=== PATIENT | male | born 1965 | race Caucasian/White ===

== ENCOUNTER 2022-06-09 17:49 | Inpatient (IN) ==
--- NOTE | 2022-06-09 17:52 | Emergency Department Note ---
History of Present Illness General Chief Complaint: Abdominal Pain Stated Complaint: ABDOMINAL ABSCESS, ABD PAIN Home Medications Medication Instructions Recorded Confirmed Type ASPIRIN (ASPIRIN CHEWABLE) 81 mg PO WK #0 tabs 03/26/13 History ZOLPIDEM TARTRATE 10 mg PO HS PRN Sleep ##0 03/26/13 History Allergies Allergy/AdvReac Type Severity Reaction Status Date / Time No Known Allergies Allergy Unverified 03/26/13 20:23 Discharge Plan Visit Data Chief Complaint: Abdominal Pain Stated Complaint: ABDOMINAL ABSCESS, ABD PAIN ED Provider: POLA GRAMAJO Forms Stand Alone Forms: [facility] Prescriptions Prescriptions: No Action ASPIRIN (ASPIRIN CHEWABLE) 81 MG CHEWABLE TAB 81 mg PO WK Qty: 0 Patient Comments: TAKE THIS MEDICATION EVERY TUESDAY. ZOLPIDEM TARTRATE 10 MG tablet 10 mg PO HS PRN (Reason: Sleep) Qty: 0 Referrals Referrals: PCP,NO [Primary Care Provider] -
[2022-06-09] MEDS ORDERED: PIPERACILLIN/TAZOBACTAM 4.5 GM/120 ML BAG IV ONE (17:54)
--- NOTE | 2022-06-09 17:57 | ED Triage Note ---
Date of Service June 09, 2022 History of Present Illness This patient was briefly evaluated while in triage. An abbreviated physical exam was performed. This patient is a 56-year-old Male with past medical history of dyslipidemia who presents to the ED for evaluation of a diverticular abscess found on CT today. abd pain x few weeks increased in 3 days started Augmentin had outpatient CT showed diverticular abscess sent for admission Physical Exam GENERAL: NAD CARDIOVASCULAR: RRR RESPIRATORY: CTA ABDOMEN: BS x 4. mild mid left abd pain to palpation Initial orders for labs and / or imaging were placed and patient was placed in the waiting area until a bed is available. Please see further documentation for the full ED course.
--- NOTE | 2022-06-09 18:30 | Emergency Department Note ---
Impression & Plan Abdominal pain, Diverticulitis ED Provider Note ED Provider Note NAME: SUSY HUITRON AGE:56 SEX: Male : 1965 ARRIVES VIA: Private vehicle INFORMANT: Patient ED PROVIDER(s): Rosa Isela Sanchez DO CHIEF COMPLAINT: Abdominal pain, outpatient CT showing diverticulitis HPI: This is a 56-year-old male presents emergency department due to concern for several weeks of intermittent abdominal pain. Pain worse in recent days and he was seen by one of his colleagues through [facility] and had outpatient lab work and a CT done. He states no significant leukocytosis, however CT did reveal diverticulitis with 2.5 cm adjacent abscess. He states he did contact Dr. Lemus of GI and was told to go to the emergency department for admission and IV antibiotics. Patient did have a prior screening colonoscopy at age 52 which she states he was told he had mild diverticular disease. No other history of IBS or IBD. No recent melena or hematochezia. He denies fevers, chills, nausea or vomiting. He states he did start taking Augmentin yesterday as a precaution due to his higher suspicion for likely diverticulitis. He has had a total of 3 doses of Augmentin. PAST MEDICAL HISTORY:See Below PAST SURGICAL HISTORY:See Below FAMILY HISTORY:See Below SOCIAL HISTORY:See Below HOME MEDICATIONS:See Below ALLERGIES:See Below VITALS:See Below PHYSICAL EXAMINATION: GENERAL: alert, well appearing, well nourished, no distress, non-toxic EYE EXAM: normal conjunctiva, PERRL and EOM's grossly intact OROPHARYNX: no exudate, no erythema, lips, buccal mucosa, and tongue normal and mucous membranes are moist NECK: supple, no nuchal rigidity, no adenopathy, non-tender LUNGS: Clear to auscultation. Normal chest wall mechanics, no w/r/r HEART: no murmurs, S1 normal and S2 normal ABDOMEN: abdomen soft, minimal discomfort with palpation of LLQ/Left suprapubic region, normo-active bowel sounds, no masses, no rebound or guarding. BACK: Back is symmetrical on inspection and there is no deformity, no midline tenderness, no CVA tenderness. SKIN: no rashes, petechiae, orbruising UPPER EXTREMITIES: upper extremities are grossly normal. FROM, nml pulses b/l. LOWER EXTREMITIES: No pitting edema. FROM, nml pulses b/l. NEURO EXAM: Normal sensorium, cranial nerves II-XII grossly intact, normal speech, no facial droop,nogross weakness of arms, no gross weakness of legs. Gross sensation intact. No ataxia. Vital Signs: reviewed and remarkable Differential Diagnosis: Diverticulitis, abscess, fistula, UTI, colitis, perforation, GI bleed, mesenteric ischemia, [place] syndrome, renal colic, as well as others were considered MEDICAL DECISION MAKING: THis is a 56 yo male who was referred to the ER by his PCP for further treatment of diverticulitis with abscess found on outpatient CT. VS stable and patient afebrile. Outpatient labs and CT reviewed. Labs including markers for sepsis drawn and IVF and IV zosyn started in the ER. Case discussed with [facility] for additional evaluation. Patient declined pain medication. Consultation(s): 1919: Discussed with Dr. Jiménez. ER Treatment Provided: See below Diagnostics Interpreted By Me: -ECG: -Cardiac Monitoring: An order was placed for continuous cardiac monitoring. The monitor shows a rate of 80 with normal sinus rhythm. -Laboratory studies: As stated above and show below. -Imaging studies: [] Triage Nursing Note Reviewed Prior/Outside Records Reviewed -outpatient labs and CT abdomen pelvis Procedures: [] Critical Care: [] Past Med/Surg History Social History Smoking Status: Never smoker Second Hand Exposure: No; Do You Dip or Chew Tobacco: No; Hx Alcohol Use: Yes Alcohol type: wine Hx Substance Use: No Preferred Language: Mongolian Communication Ability: Effective Music Educator Required: No Beliefs That Will Affect Care: None Current Living Situation: Alone Feels Safe at Home: Yes Safety Concerns: Feels Safe At This Time Assistive Devices: None Allergies Allergies Allergy/AdvReac Type Severity Reaction Status Date / Time No Known Allergies Allergy Unverified 06/09/22 19:33 Home Meds Home Medications Medication Instructions Recorded Confirmed atorvastatin 20 mg tablet 20 mg PO DAILY 06/09/22 06/09/22 Results & Data (ED) Vital Signs Vital Signs - 24 hr 06/09/22 17:53 06/09/22 18:52 Temperature 37.1 C Temperature Source Temporal Artery Scan Pulse Rate 79 68 Respiratory Rate 18 Respiratory Effort / Characteristics Non-Labored Respiratory Depth Normal Blood Pressure 118/78 Blood Pressure Mean 91 Pulse Oximetry 97 Oxygen Delivery Method Room Air Sepsis Recent Fever Within 48 Hours No Sepsis New/Unexplained Change in Mental Status No Sepsis Action Taken by Nursing No Action Required Laboratory Data 06/09/22 18:44 06/09/22 18:44 Lab Results 06/09/22 06/09/22 06/09/22 Range/Units 18:44 18:44 18:44 WBC 9.67 (4.8-10.8) K/ul RBC 4.87 (4.70-6.10) M/uL Hgb 15.2 (14.0-18.0) g/dl Hct 43.6 (42.0-52.0) % MCV 89.5 (80.0-100.0) fL MCH 31.2 (25.0-34.0) pg MCHC 34.9 (32.0-36.0) g/dL RDW Std Deviation 37.9 (36.4-46.3) fL RDW Coeff of Tay 11.6 (11.5-14.5) % Plt Count 172 (130-400) K/uL MPV 10.8 (9.4-12.4) fL Immature Gran % (Auto) 0.3 % Neut % (Auto) 73.5 % Lymph % (Auto) 17.9 % Baker % (Auto) 7.9 % Eos % (Auto) 0.2 % Baso % (Auto) 0.2 % Neut # (Auto) 7.11 H (1.40-6.50) K/uL Lymph # (Auto) 1.73 (1.2-3.4) K/uL Baker # (Auto) 0.76 H (0.11-0.59) K/uL Eos # (Auto) 0.02 (0-0.50) K/uL Baso # (Auto) 0.02 (0-0.2) K/uL Immature Gran # (Auto) 0.03 (0.01-0.20) K/uL Sodium 135 L (136-145) mmol/L Potassium 3.9 (3.5-5.1) mmol/L Chloride 101 (98-107) mmol/L Carbon Dioxide 28 (21-32) mmol/L Anion Gap 6 (3-11) BUN 16 (6-23) mg/dl Creatinine 0.97 (0.6-1.4) mg/dl Est Cr Clr Drug Dosing 85.1 ml/min Est GFR ( Amer) 102.2 ml/min Est GFR (Non-Af Amer) 88.1 ml/min BUN/Creatinine Ratio 16.5 (10-20) Glucose 92 (70-99(Fasting)) mg/dl Lactate 1.0 (0.4-2.0) mmol/L Calcium 9.4 (8.5-10.1) mg/dl Total Bilirubin 1.4 H (0.2-1.0) mg/dl AST 16 (13-39) U/L ALT 20 (7-52) U/L Alkaline Phosphatase 51 (34-104) U/L Total Protein 7.1 (6.0-8.3) gm/dl Albumin 4.4 (3.4-5.0) gm/dl Globulin 2.7 (2.5-4.0) gm/dl Albumin/Globulin Ratio 1.6 (0.9-2) Lipase 26 (11-82) U/L SARS-CoV-2, RNA, NAAT (NEGATIVE) 06/09/22 Range/Units 18:53 WBC (4.8-10.8) K/ul RBC (4.70-6.10) M/uL Hgb (14.0-18.0) g/dl Hct (42.0-52.0) % MCV (80.0-100.0) fL MCH (25.0-34.0) pg MCHC (32.0-36.0) g/dL RDW Std Deviation (36.4-46.3) fL RDW Coeff of Tay (11.5-14.5) % Plt Count (130-400) K/uL MPV (9.4-12.4) fL Immature Gran % (Auto) % Neut % (Auto) % Lymph % (Auto) % Baker % (Auto) % Eos % (Auto) % Baso % (Auto) % Neut # (Auto) (1.40-6.50) K/uL Lymph # (Auto) (1.2-3.4) K/uL Baker # (Auto) (0.11-0.59) K/uL Eos # (Auto) (0-0.50) K/uL Baso # (Auto) (0-0.2) K/uL Immature Gran # (Auto) (0.01-0.20) K/uL Sodium (136-145) mmol/L Potassium (3.5-5.1) mmol/L Chloride (98-107) mmol/L Carbon Dioxide (21-32) mmol/L Anion Gap (3-11) BUN (6-23) mg/dl Creatinine (0.6-1.4) mg/dl Est Cr Clr Drug Dosing ml/min Est GFR ( Amer) ml/min Est GFR (Non-Af Amer) ml/min BUN/Creatinine Ratio (10-20) Glucose (70-99(Fasting)) mg/dl Lactate (0.4-2.0) mmol/L Calcium (8.5-10.1) mg/dl Total Bilirubin (0.2-1.0) mg/dl AST (13-39) U/L ALT (7-52) U/L Alkaline Phosphatase (34-104) U/L Total Protein (6.0-8.3) gm/dl Albumin (3.4-5.0) gm/dl Globulin (2.5-4.0) gm/dl Albumin/Globulin Ratio (0.9-2) Lipase (11-82) U/L SARS-CoV-2, RNA, NAAT NEGATIVE (NEGATIVE) Administered Medications Sodium Chloride (Nss 1000ml) 1,000 mls @ 100 mls/hr IV .Q10H ELIO Stop: 07/09/22 18:29 Last Admin: 06/10/22 01:50 Dose: 125 mls/hr Documented By: Infusion: 06/10/22 01:50 Dose: 125 mls/hr Documented By: Admin: 06/09/22 19:15 Dose: 125 mls/hr Documented By: MIAN Piperacillin Sod/Tazobactam (Sod 3.375 gm/ Dextrose) 115 mls @ 28.75 mls/hr IV Q8H ELIO; Protocol Stop: 06/20/22 00:00 Last Infusion: 06/10/22 04:34 Dose: 0 mls/hr Documented By: Admin: 06/10/22 00:09 Dose: 28.8 mls/hr Documented By: ESTEVAN Discontinued Medications Piperacillin Sod/Tazobactam Sod (Zosyn) 4.5 gm in 120 mls @ 240 mls/hr IV NOW ONE Stop: 06/09/22 18:23 Last Infusion: 06/09/22 19:14 Dose: 0 mls/hr Documented By: Admin: 06/09/22 18:38 Dose: 240 mls/hr Documented By: MIAN Discharge Plan Visit Data Chief Complaint: Abdominal Pain Stated Complaint: ABDOMINAL ABSCESS, ABD PAIN ED Provider: Rosa Isela Sanchez Discharge Problem: Abdominal pain, Diverticulitis Patient Disposition: Admitted As Inpatient Discharge Instructions Interventions: ED Discharge Assessment Last Done: 06/09/22 21:32
[2022-06-09 19:00] LABS: Basophils # (auto) 0.02 K/uL (0-0.2); Basophils % (auto) 0.2 %; Eosinophils # (auto) 0.02 K/uL (0-0.50); Eosinophils % (auto) 0.2 %; Hematocrit (blood only) 43.6 % (42.0-52.0); Hemoglobin 15.2 g/dl (14.0-18.0); Immature Granulocytes # (auto) 0.03 K/uL (0.01-0.20); Immature Granulocytes % (auto) 0.3 %; Lymphocytes # (auto) 1.73 K/uL (1.2-3.4); Lymphocytes % (auto) 17.9 %; Mean Corpuscular Hemoglobin 31.2 pg (25.0-34.0); Mean Corpuscular Hgb Conc 34.9 g/dL (32.0-36.0); Mean Corpuscular Volume 89.5 fL (80.0-100.0); Mean Platelet Volume 10.8 fL (9.4-12.4); Monocytes # (auto) 0.76 K/uL (0.11-0.59); Monocytes % (auto) 7.9 %; Neutrophils # (auto) 7.11 K/uL (1.40-6.50); Neutrophils % (auto) 73.5 %; Platelet Count 172 K/uL (130-400); RDW Coefficient of Variation 11.6 % (11.5-14.5); RDW Standard Deviation 37.9 fL (36.4-46.3); Red Blood Count 4.87 M/uL (4.70-6.10); White Blood Count 9.67 K/ul (4.8-10.8)
[2022-06-09] MEDS: SODIUM CHLORIDE 0.9% 1000ML 1,000 ML IV SCH (19:15)
[2022-06-09 19:27] LABS: Albumin Globulin Ratio 1.6 (0.9-2); Albumin Level 4.4 gm/dl (3.4-5.0); BUN Creatinine Ratio 16.5 (10-20); Bilirubin,Total 1.4 mg/dl (0.2-1.0); Calcium 9.4 mg/dl (8.5-10.1); Creatinine Clr Calc Pharmacy 85.1 ml/min; Est GFR (African American) 102.2 ml/min; Est GFR (Non-African American) 88.1 ml/min; Globulin 2.7 gm/dl (2.5-4.0); Potassium 3.9 mmol/L (3.5-5.1); Total Protein 7.1 gm/dl (6.0-8.3)
--- NOTE | 2022-06-09 20:21 | History & Physical Report ---
Date of Service June 09, 2022 Assessment & Plan (1) Diverticulitis of large intestine with complication: Plan: No sepsis for now Hyperlipidemia on statin Rx GMF Bowel rest Zosyn General surgery consult Re: Complicated diverticulitis DVT prophylaxis. Lovenox subcu Full code Text document was generated using Bloxr voice recognition software. It may contain grammatical or spelling errors. Kindly contact undersigned for clarification of any documentation item in question. History of Present Illness Chief Complaint: Abnormal CAT scan Primary Care Provider: Rachael Soares PA-C History obtained from patient and records. Medical history significant for hyperlipidemia, diverticulosis. Patient noted intermittent lower abdominal pain last few weeks. No fever, no chills, no hematochezia. Bowel movements sometimes painful as per patient. May have had short-lived episode spontaneously resolving a few months ago. Work colleague prescribed Augmentin for patient for possible gut infection yesterday. Patient seen at PCPs office today for worsening symptoms. Outpatient CAT scan showed : Short segment mural wall thickening with mild surrounding fat stranding involving the proximal sigmoid colon consistent with acute diverticulitis. A 2.3 x 1.4 cm focal hypoattenuating area of the involved colonic wall, suggesting a developing intramural abscess. No extramural gas. Patient directed to ER for evaluation. IV Zosyn administered at the ER. Medical History as above Surgical History : None Family History : Brain cancer, breast cancer, leukemia, lung cancer, hypertension, hyperlipidemia, Sjogren's syndrome Personal/Social history : Non-smoker, occasional EtOH intake, primary care physician Allergies Allergy/AdvReac Type Severity Reaction Status Date / Time No Known Allergies Allergy Unverified 06/09/22 19:33 Home Medications Medication Instructions Recorded Confirmed Type atorvastatin 20 mg tablet 20 mg PO DAILY 06/09/22 06/09/22 History Past Med/Surg History Social History Smoking Status: Never smoker Second Hand Exposure: No; Do You Dip or Chew Tobacco: No; Hx Alcohol Use: Yes Alcohol type: wine Hx Substance Use: No Preferred Language: Yi Communication Ability: Effective Softball Player Required: No Beliefs That Will Affect Care: None Current Living Situation: Alone Feels Safe at Home: Yes Safety Concerns: Feels Safe At This Time Assistive Devices: None Review of Systems Review of Systems: As per HPI, all other systems reviewed and negative Physical Exam Physical Exam: GENERAL: Comfortable, pleasant, no respiratory distress SKIN: Normal color, warm HEENT: [place] palpebral conjunctivae, no ptosis, moist buccal mucosa NECK : Supple, no tenderness CHEST : CTA, no tenderness HEART : RRR, no obvious murmurs ABDOMEN: Some distention, nontender EXTREMITIES : No LE swelling/tenderness, no other conspicuous deformities noted NEUROLOGIC : Coherent, no facial asymmetry, no other gross focality Results & Data Results & Data ([facility]) Vital Signs (Past 12 Hours) Vital Signs Temp Pulse Resp BP Pulse Ox O2 Del Method 06/09/22 18:52 68 06/09/22 17:53 37.1 C 79 18 118/78 97 Room Air Laboratory Results Laboratory Results WBC 9.67 K/ul (4.8-10.8) 06/09/22 18:44 RBC 4.87 M/uL (4.70-6.10) 06/09/22 18:44 Hgb 15.2 g/dl (14.0-18.0) 06/09/22 18:44 Hct 43.6 % (42.0-52.0) 06/09/22 18:44 MCV 89.5 fL (80.0-100.0) 06/09/22 18:44 MCH 31.2 pg (25.0-34.0) 06/09/22 18:44 MCHC 34.9 g/dL (32.0-36.0) 06/09/22 18:44 RDW Std Deviation 37.9 fL (36.4-46.3) 06/09/22 18:44 RDW Coeff of Tay 11.6 % (11.5-14.5) 06/09/22 18:44 Plt Count 172 K/uL (130-400) 06/09/22 18:44 MPV 10.8 fL (9.4-12.4) 06/09/22 18:44 Immature Gran % (Auto) 0.3 % 06/09/22 18:44 Neut % (Auto) 73.5 % 06/09/22 18:44 Lymph % (Auto) 17.9 % 06/09/22 18:44 [place] % (Auto) 7.9 % 06/09/22 18:44 Eos % (Auto) 0.2 % 06/09/22 18:44 Baso % (Auto) 0.2 % 06/09/22 18:44 Neut # (Auto) 7.11 K/uL (1.40-6.50) H 06/09/22 18:44 Lymph # (Auto) 1.73 K/uL (1.2-3.4) 06/09/22 18:44 [place] # (Auto) 0.76 K/uL (0.11-0.59) H 06/09/22 18:44 Eos # (Auto) 0.02 K/uL (0-0.50) 06/09/22 18:44 Baso # (Auto) 0.02 K/uL (0-0.2) 06/09/22 18:44 Immature Gran # (Auto) 0.03 K/uL (0.01-0.20) 06/09/22 18:44 Sodium 135 mmol/L (136-145) L 06/09/22 18:44 Potassium 3.9 mmol/L (3.5-5.1) 06/09/22 18:44 Chloride 101 mmol/L (98-107) 06/09/22 18:44 Carbon Dioxide 28 mmol/L (21-32) 06/09/22 18:44 Anion Gap 6 (3-11) 06/09/22 18:44 BUN 16 mg/dl (6-23) 06/09/22 18:44 Creatinine 0.97 mg/dl (0.6-1.4) 06/09/22 18:44 Est Cr Clr Drug Dosing 85.1 ml/min 06/09/22 18:44 Est GFR ( Amer) 102.2 ml/min 06/09/22 18:44 Est GFR (Non-Af Amer) 88.1 ml/min 06/09/22 18:44 BUN/Creatinine Ratio 16.5 (10-20) 06/09/22 18:44 Glucose 92 mg/dl (70-99(Fasting)) 06/09/22 18:44 Lactate 1.0 mmol/L (0.4-2.0) 06/09/22 18:44 Calcium 9.4 mg/dl (8.5-10.1) 06/09/22 18:44 Total Bilirubin 1.4 mg/dl (0.2-1.0) H 06/09/22 18:44 AST 16 U/L (13-39) 06/09/22 18:44 ALT 20 U/L (7-52) 06/09/22 18:44 Alkaline Phosphatase 51 U/L (34-104) 06/09/22 18:44 Total Protein 7.1 gm/dl (6.0-8.3) 06/09/22 18:44 Albumin 4.4 gm/dl (3.4-5.0) 06/09/22 18:44 Globulin 2.7 gm/dl (2.5-4.0) 06/09/22 18:44 Albumin/Globulin Ratio 1.6 (0.9-2) 06/09/22 18:44 Lipase 26 U/L (11-82) 06/09/22 18:44
[2022-06-09] MEDS ORDERED: KETOROLAC TROMETHAMINE 15 MG/ML VIAL IV PRN (21:47)
[2022-06-09] MEDS ORDERED: ACETAMINOPHEN 325 MG TAB PO PRN (21:47)
[2022-06-09] MEDS ORDERED: PROMETHAZINE HCL 6.25 MG in SODIUM CHLORIDE 0.9% 50 ML IV PRN (21:47)
--- NOTE | 2022-06-09 23:04 | Surgery Consultation ---
Date of Consultation June 09, 2022 Assessment & Plan (1) Diverticulitis: Patient has been admitted on the hospitalist service. Recommend proceeding as follows. Provide analgesics Provide antiemetics Antibiotics in form of Zosyn has been initiated. I recommend continuing this antibiotic. Provide hydration measures with IV fluids Continue n.p.o. status has been ordered with the allowance of an occasional ice chip for comfort Follow serial labs I discussed with the patient his condition and noted that we would like to treat him in a conservative manner as outlined above. I did explain to him that any emergency surgery at this time would likely necessitate a temporary colostomy which we would like to avoid. We will continue to monitor the patient clinically and if he clinically improves we will slowly advance his diet beginning with clear liquids ultimately progressing to a low fiber diet. I also discussed with the patient that if he clinically deteriorates we can consider reimaging his abdomen. It should be noted that the findings on patient's CT scan were delineated from the CT scan report that was present on chart. As the patient had his CT scan done at an outpatient [facility] facility I was unable to view the actual images. Tomorrow we will attempt to have these images pushed to the [facility] system. Additional recommendations be forthcoming based on his clinical course as unfolds Supervising Physician Co-Signing Physician Notes Dr Lizet Breen reviewed pts hx and studies. I don't believe we have the CT film but reportedly he has evidence of sigmoid diverticulitis with mural abscess of 2.5x 1.4 cm. Pt is stable with normal white count. Plan as above- min po for 48 hrs then slowly advance diet. May consider f/u with [facility] Colorectal surgery or GI service depending on pts preference. History of Present Illness Reason for Consultation: Diverticulitis Attending Physician: Ji Vila MD History of Present Illness This is a 56-year-old male who presented to the emergency department secondary to intermittent abdominal pain that has been present for several weeks. Patient initially felt that he may have had a gastroenteritis or stomach bug and did not seek medical attention prior to today. He did note that earlier today the pain was more severe than usual. He describes the pain as a pressure located mainly in the suprapubic region. He notes the pain does not radiate. He does not note any palliative or provocative factors. He denies any fevers but did have chills earlier today. He denies any nausea or vomiting. He notes he did have a bowel movement earlier today and he denies any bright blood per rectum or melena. The patient does note some intermittent dysuria and discomfort when he urinates but denies any pneumaturia. He reports that he had a colonoscopy approximately 4 ye ars ago and to the best of his knowledge was he was told that there was some diverticular disease but no other significant pathology. He notes that he has never had any prior abdominal surgeries. The patient did undergo a CT scan at one of the outpatient [facility] facilities. This showed the patient had findings consistent with acute sigmoid diverticulitis. There is also concern the patient had a a 2.5 x 1.4 cm intramural abscess. There is no evidence of perforation on the study. The patient was advised by Dr. Lemus of [facility] gastroenterology for patient go to the emergency department for further evaluation. In the emergency department [facility] the patient did not undergo repeat imaging and he did have labs were white blood cell count, hemoglobin, hematocrit, platelet count were normal. Chemistry profile showed sodium was 135. Potassium, BUN, and creatinine were all normal. Lactic acid was nonelevated. His total bilirubin had a slight elevation 1.4 but his LFTs were otherwise unremarkable. Lipase was not elevated. A COVID test was negative. At the time of my interview the patient was resting comfortably in bed he was in no distress. Allergies Allergy/AdvReac Type Severity Reaction Status Date / Time No Known Allergies Allergy Unverified 06/09/22 19:33 Home Medications Medication Instructions Recorded Confirmed Type atorvastatin 20 mg tablet 20 mg PO DAILY 06/09/22 06/09/22 History Patient History Social History Smoking Status: Never smoker Second Hand Exposure: No; Do You Dip or Chew Tobacco: No; Hx Alcohol Use: Yes Alcohol type: wine Hx Substance Use: No Preferred Language: Fijian Communication Ability: Effective Assembler Mechanical Ordnance Required: No Beliefs That Will Affect Care: None Current Living Situation: Alone Feels Safe at Home: Yes Safety Concerns: Feels Safe At This Time Assistive Devices: None Review of Systems Constitutional: + chills; no fever Eyes: no eye pain Ear, Nose, Mouth, Throat: no ear pain Respiratory: no cough and no dyspnea Cardiovascular: no chest pain Gastrointestinal: as per Subjective / HPI Genitourinary: + dysuria (Intermittent) Musculoskeletal: no back pain Integumentary: no rash Neurologic: no localized weakness Physical Exam Constitutional: WD/WN, vitals as above Eyes: no conjunctival abnormality ENMT: Ears: no hearing impairment and no external ear abnormality Mouth: no oropharynx abnormality Neck: trachea midline Respiratory: normal respiratory effort; no respiratory distress and no labored breathing Cardiovascular: Rate/Rhythm: regular rate and regular rhythm Vessels: dorsalis pedis pulses present and radial pulses present Gastrointestinal (Abdomen): Abdomen is soft, nonrigid, nondistended, and nontender. There is minimal pain with palpation in the suprapubic region and left lower quadrant. There is no rebound tenderness or guarding. Musculoskeletal: No calf tenderness Skin: no rashes Neurologic: moves all extremities Psychiatric: A+Ox3, euthymic affect Results & Data ([facility]) Vital Signs (Past 12 Hours) Vital Signs Temp Pulse Pulse Resp BP BP Pulse Ox 06/09/22 22:00 06/09/22 22:00 36.9 C 64 18 115/76 97 06/09/22 21:47 36.9 C 64 20 115/76 97 06/09/22 21:29 16 106/67 95 06/09/22 20:24 64 18 98 06/09/22 18:52 68 06/09/22 17:53 37.1 C 79 18 118/78 97 O2 Del Method 06/09/22 22:00 Room Air 06/09/22 22:00 Room Air 06/09/22 21:47 Room Air 06/09/22 21:29 Room Air 06/09/22 20:24 Room Air 06/09/22 18:52 06/09/22 17:53 Room Air PG Care Time/CCT Total # of Minutes Spent Total Time Spent with Patient: Total time spent is greater than 50% in coordination of care (as documented) at patient's floor/unit and/or counseling patient: Coding Level of Care Code INP/OBS CONSULT LVL 5, 80 MIN Diagnoses Diverticulitis K57.92
[2022-06-10] MEDS: PIPERACILLIN/TAZOBACTAM 3.375 GM in DEXTROSE 5% 100 ML IV SCH ×3 (00:09→16:31)
[2022-06-10] MEDS: SODIUM CHLORIDE 0.9% 1000ML 1,000 ML IV SCH ×3 (01:50→17:57)
--- NOTE | 2022-06-10 06:36 | Surgery Progress Note ---
Date of Service June 10, 2022 Assessment & Plan (1) Diverticulitis of large intestine with complication: Plan: Patient with diverticulitis and small mural abscess This should resolve with IV/p.o. antibiotics Continue on ice today into tomorrow and then begin clear liquids At some point would repeat the CAT scan but may be 1 to 2 weeks depending on his progress We will consider GI/colorectal surgery follow-up Encourage ambulation Admission and Anticipated Discharge Date Admission Date: June 09, 2022 Subjective Patient awake and alert in no distress Receiving no pain medication Some mild discomfort Review of Systems Review of Systems: All systems reviewed & are unremarkable except as noted in HPI & below Physical Exam Physical Exam: Awake and alert Vital signs are stable Abdomen is flat nondistended Constitutional: well developed; no acute distress Eyes: + anicteric sclerae Respiratory: normal respiratory effort; no respiratory distress Cardiovascular: Rate/Rhythm: regular rate Gastrointestinal (Abdomen): See above Musculoskeletal: Head/Neck/Chest: head atraumatic Skin: no rashes, warm and dry Neurologic: awake Psychiatric: Orientation: alert Results & Data ([facility]) Vital Signs (Past 12 Hours) Vital Signs Temp Pulse Pulse Resp BP Pulse Ox O2 Del Method 06/09/22 22:00 Room Air 06/09/22 22:00 36.9 C 64 18 115/76 97 Room Air 06/09/22 21:47 36.9 C 64 20 115/76 97 Room Air 06/09/22 21:29 16 106/67 95 Room Air 06/09/22 20:24 64 18 98 Room Air 06/09/22 18:52 68 PG Care Time/CCT Total # of Minutes Spent Total Time Spent with Patient: Total time spent is greater than 50% in coordination of care (as documented) at patient's floor/unit and/or counseling patient: Coding Level of Care Code 96938 SUB INP/OBS CARE Diagnoses Diverticulitis of large intestine with complication K57.32
[2022-06-10 08:26] LABS: Basophils # (auto) 0.02 K/uL (0-0.2); Basophils % (auto) 0.3 %; Eosinophils # (auto) 0.02 K/uL (0-0.50); Eosinophils % (auto) 0.3 %; Hematocrit (blood only) 39.3 % (42.0-52.0); Hemoglobin 13.8 g/dl (14.0-18.0); Immature Granulocytes # (auto) 0.04 K/uL (0.01-0.20); Immature Granulocytes % (auto) 0.5 %; Lymphocytes # (auto) 1.33 K/uL (1.2-3.4); Mean Corpuscular Hemoglobin 31.9 pg (25.0-34.0); Mean Corpuscular Hgb Conc 35.1 g/dL (32.0-36.0); Mean Corpuscular Volume 90.8 fL (80.0-100.0); Mean Platelet Volume 10.5 fL (9.4-12.4); Monocytes # (auto) 0.61 K/uL (0.11-0.59); Monocytes % (auto) 7.8 %; Neutrophils # (auto) 5.79 K/uL (1.40-6.50); Neutrophils % (auto) 74.1 %; Platelet Count 153 K/uL (130-400); RDW Coefficient of Variation 11.5 % (11.5-14.5); RDW Standard Deviation 38.4 fL (36.4-46.3); Red Blood Count 4.33 M/uL (4.70-6.10); White Blood Count 7.81 K/ul (4.8-10.8)
[2022-06-10] MEDS: ENOXAPARIN INJ 40 MG/0.4 ML SYR SQ SCH (08:56)
[2022-06-10] MEDS: ATORVASTATIN 20 MG TAB PO SCH (08:56)
[2022-06-10 09:00] LABS: BUN Creatinine Ratio 13.1 (10-20); Calcium 8.8 mg/dl (8.5-10.1); Creatinine Clr Calc Pharmacy 77.5 ml/min; Est GFR (African American) 90.7 ml/min; Est GFR (Non-African American) 78.3 ml/min; Potassium 4.1 mmol/L (3.5-5.1)
--- NOTE | 2022-06-10 12:23 | Hospitalist Progress Note ---
Date of Service June 10, 2022 Assessment & Plan (1) Diverticulitis of large intestine with complication: Plan: Outpatient CT a/p revealed acute sigmoid diverticulitis with a small developing intramural abscess 2.3 x 1.4cm. UA/UCx negative. Cont abx per surgery recs. Ice chips today and tomorrow will start clears. Repeat CT scan in 2 weeks. Cont Zosyn for now. (2) Hyperlipidemia: Plan: chronic, stable. Cont home atorvastatin. DVT proph: Enoxaparin Full Code Dispo-to home in 1-2 days. Angelita Banks DO [facility] Hospitalist Admission and Anticipated Discharge Date Admission Date: June 09, 2022 Subjective 56 yo M admitted with complicated diverticulitis -feeling well, no pain reported -eating ice chips -feels some discomfort when urinating in periumbilical area -no dysuria. -no fevers/chills -no problems with abx, no diarrhea, etc. Review of Systems Review of Systems: All systems were reviewed and negative except as indicated on subjective above. Physical Exam Physical Exam: CONSTITUTIONAL: WNWD, vitals as above, generally well-appearing, NAD EYES: normal conjunctivae, no scleral icterus ENT: external ear and nose normal, MMM NECK: trachea midline RESPIRATORY: clear to auscultation bilaterally, no crackles, rales or wheezes, normal respiratory effort CARDIOVASCULAR: regular rate and rhythm, S1 and 2 heard without murmurs, gallops or rubs, no JVD, no peripheral edema CHEST: inspection of chest was normal GASTROINTESTINAL: normal bowel sounds, soft, nontender, ND, no guarding MUSCULOSKELETAL: strength 5/5 throughout, head is normocephalic and atraumatic SKIN: warm and dry NEUROLOGIC: CN 2-12 grossly intact, no sensory deficit, normal cognition, normal speech, no tremor PSYCHIATRIC: alert cooperative and oriented to person, place and time. Euthymic mood, makes good eye contact, language grossly intact, recent and remote memory grossly intact. Results & Data Results & Data ([facility]) Vital Signs (Past 12 Hours) Vital Signs Temp Pulse Resp BP Pulse Ox O2 Del Method 06/10/22 11:23 36.8 C 64 16 101/59 L 98 Room Air 06/10/22 08:24 36.7 C 68 18 106/67 98 Room Air Laboratory Results Short CBC 06/09/22 06/10/22 Range/Units 18:44 07:47 WBC 9.67 7.81 (4.8-10.8) K/ul Hgb 15.2 13.8 L (14.0-18.0) g/dl Hct 43.6 39.3 L (42.0-52.0) % Plt Count 172 153 (130-400) K/uL BMP 06/09/22 06/10/22 18:44 07:47 Sodium 135 L 137 Potassium 3.9 4.1 Chloride 101 105 Carbon Dioxide 28 27 BUN 16 14 Creatinine 0.97 1.07 Glucose 92 80 Calcium 9.4 8.8 Liver Function 06/09/22 Range/Units 18:44 Total Bilirubin 1.4 H (0.2-1.0) mg/dl AST 16 (13-39) U/L ALT 20 (7-52) U/L Alkaline Phosphatase 51 (34-104) U/L Albumin 4.4 (3.4-5.0) gm/dl Medications Administered Current Inpatient Medications Acetaminophen (Acetaminophen 325 Mg Tab) 650 mg PO Q4H PRN PRN Reason: pain/fever Stop: 07/09/22 21:46 Atorvastatin Calcium (Atorvastatin 20 Mg Tab) 20 mg PO DAILY [facility] Stop: 07/10/22 08:59 Last Admin: 06/10/22 08:56 Dose: 20 mg Enoxaparin Sodium (Enoxaparin Inj 40 Mg/0.4 Ml Syr) 40 mg SQ QAM [facility] Stop: 07/10/22 08:59 Last Admin: 06/10/22 08:56 Dose: 40 mg Sodium Chloride (Nss 1000ml) 1,000 mls @ 100 mls/hr IV .Q10H [facility] Stop: 07/09/22 18:29 Last Admin: 06/10/22 09:58 Dose: 125 mls/hr Piperacillin Sod/Tazobactam (Sod 3.375 gm/ Dextrose) 115 mls @ 28.75 mls/hr IV Q8H [facility]; Protocol Stop: 06/20/22 00:00 Last Admin: 06/10/22 08:55 Dose: 28.8 mls/hr Promethazine HCl 6.25 mg/ (Sodium Chloride) 50.25 mls @ 201 mls/hr IV Q6H PRN PRN Reason: Nausea And Vomiting Stop: 07/09/22 21:46 Ketorolac Tromethamine (Ketorolac Tromethamine 15 Mg/Ml Vial) 15 mg IV Q6H PRN PRN Reason: Pain Stop: 06/14/22 21:46
[2022-06-11] MEDS: PIPERACILLIN/TAZOBACTAM 3.375 GM in DEXTROSE 5% 100 ML IV SCH ×3 (00:03→16:03)
[2022-06-11] MEDS: SODIUM CHLORIDE 0.9% 1000ML 1,000 ML IV SCH (01:37)
--- NOTE | 2022-06-11 08:25 | Surgery Progress Note ---
Date of Service June 11, 2022 Assessment & Plan (1) Diverticulitis of large intestine with complication: Plan: Patient's area of inflammation is next to the bladder This could cause some irritation with distention and voiding We will continue IV antibiotics today-May consider switching to oral Augmentin tomorrow with possible discharge home Would continue him on antibiotics for at least 2 weeks Plan will be for outpatient CT scan 1 to 2 weeks We will consider follow-up with colorectal surgery of his choice Lay, Katerin or other He is taking no pain medication which is very good Admission and Anticipated Discharge Date Admission Date: June 09, 2022 Subjective Patient awake and alert Afebrile Was having some mild discomfort with voiding but this has improved Taking no pain medication Review of Systems Review of Systems: All systems reviewed & are unremarkable except as noted in HPI & below Physical Exam Physical Exam: Awake and alert Vital signs are stable Abdomen is flat nondistended Constitutional: well developed; no acute distress Eyes: + anicteric sclerae Respiratory: normal respiratory effort; no respiratory distress Cardiovascular: Rate/Rhythm: regular rate Gastrointestinal (Abdomen): See above Musculoskeletal: Head/Neck/Chest: head atraumatic Skin: no rashes, warm and dry Neurologic: awake Psychiatric: Orientation: alert Results & Data ([facility]) Vital Signs (Past 12 Hours) Vital Signs Temp Pulse Resp BP Pulse Ox O2 Del Method 06/10/22 21:57 36.4 C L 60 16 101/62 98 Room Air PG Care Time/CCT Total # of Minutes Spent Total Time Spent with Patient: Total time spent is greater than 50% in coordination of care (as documented) at patient's floor/unit and/or counseling patient: Coding Level of Care Code 79366 SUB INP/OBS CARE 05/12MIN Diagnoses Diverticulitis of large intestine with complication K57.32
[2022-06-11] MEDS: ENOXAPARIN INJ 40 MG/0.4 ML SYR SQ SCH (08:35)
[2022-06-11] MEDS: ATORVASTATIN 20 MG TAB PO SCH (08:36)
--- NOTE | 2022-06-11 13:17 | Hospitalist Progress Note ---
Date of Service June 11, 2022 Assessment & Plan (1) Diverticulitis of large intestine with complication: Plan: Outpatient CT a/p revealed acute sigmoid diverticulitis with a small developing intramural abscess 2.3 x 1.4cm. UA/UCx negative. Cont abx per surgery recs. Tolerated liquid bfast and lunch without issues. Had normal formed stool this am followed by two episodes of diarrhea. Checking cdiff and added acidophilus. We discussed diet changes that may be helpful with baseline IBS issues. Repeat CT scan in 2 weeks. Cont Zosyn for one more day with possible dc to home in am. (2) Hyperlipidemia: Plan: chronic, stable. Cont home atorvastatin. DVT proph: Enoxaparin Full Code Dispo-to home in 1-2 days. DO [facility] Hospital[facility] Admission and Anticipated Discharge Date Admission Date: June 09, 2022 Subjective 56 yo M admitted for complicated diverticulitis Afebrile Was having some mild discomfort with voiding but this has improved Taking no pain medication Review of Systems Review of Systems: All systems were reviewed and negative except as indicated on subjective above. Physical Exam Physical Exam: CONSTITUTIONAL: WNWD, vitals as above, generally well-appearing, NAD EYES: normal conjunctivae, no scleral icterus ENT: external ear and nose normal, MMM NECK: trachea midline RESPIRATORY: clear to auscultation bilaterally, no crackles, rales or wheezes, normal respiratory effort CARDIOVASCULAR: regular rate and rhythm, S1 and 2 heard without murmurs, gallops or rubs, no JVD, no peripheral edema CHEST: inspection of chest was normal GASTROINTESTINAL: normal bowel sounds, soft, nontender, ND, no guarding MUSCULOSKELETAL: strength 5/5 throughout, head is normocephalic and atraumatic SKIN: warm and dry NEUROLOGIC: CN 2-12 grossly intact, no sensory deficit, normal cognition, normal speech, no tremor PSYCHIATRIC: alert cooperative and oriented to person, place and time. Euthymic mood, makes good eye contact, language grossly intact, recent and remote memory grossly intact. Results & Data Results & Data ([facility]) Vital Signs (Past 12 Hours) Vital Signs Temp Pulse Resp BP Pulse Ox O2 Del Method 06/11/22 08:20 36.5 C 62 18 101/64 97 Room Air Medications Administered Current Inpatient Medications Acetaminophen (Acetaminophen 325 Mg Tab) 650 mg PO Q4H PRN PRN Reason: pain/fever Stop: 07/09/22 21:46 Atorvastatin Calcium (Atorvastatin 20 Mg Tab) 20 mg PO DAILY [facility] Stop: 07/10/22 08:59 Last Admin: 06/11/22 08:36 Dose: 20 mg Enoxaparin Sodium (Enoxaparin Inj 40 Mg/0.4 Ml Syr) 40 mg SQ QAM [facility] Stop: 07/10/22 08:59 Last Admin: 06/11/22 08:35 Dose: 40 mg Piperacillin Sod/Tazobactam (Sod 3.375 gm/ Dextrose) 115 mls @ 28.75 mls/hr IV Q8H [facility]; Protocol Stop: 06/20/22 00:00 Last Admin: 06/11/22 09:28 Dose: 28.8 mls/hr Promethazine HCl 6.25 mg/ (Sodium Chloride) 50.25 mls @ 201 mls/hr IV Q6H PRN PRN Reason: Nausea And Vomiting Stop: 07/09/22 21:46 Ketorolac Tromethamine (Ketorolac Tromethamine 15 Mg/Ml Vial) 15 mg IV Q6H PRN PRN Reason: Pain Stop: 06/14/22 21:46
[2022-06-11] MEDS: ADVANCED PROBIOTIC 1250 MG CAPSULE PO SCH (16:03)
[2022-06-12] MEDS: PIPERACILLIN/TAZOBACTAM 3.375 GM in DEXTROSE 5% 100 ML IV SCH ×2 (00:08→08:08)
[2022-06-12] MEDS: ADVANCED PROBIOTIC 1250 MG CAPSULE PO SCH (08:08)
[2022-06-12] MEDS: ENOXAPARIN INJ 40 MG/0.4 ML SYR SQ SCH (08:08)
[2022-06-12] MEDS: ATORVASTATIN 20 MG TAB PO SCH (08:08)
--- NOTE | 2022-06-12 09:50 | Surgery Progress Note ---
Date of Service June 12, 2022 Assessment & Plan (1) Diverticulitis of large intestine with complication: Plan: Doing well. Okay from our standpoint for discharge with oral antibiotics. Discussed the low residue diet at home and we will advance him while he is still here. Admission and Anticipated Discharge Date Admission Date: June 09, 2022 Subjective Patient seen. Continues to feel well. Currently no pain. Tolerating liquid diet. Physical Exam Constitutional: WD/WN, vitals as above no acute distress and not ill appearing Eyes: PERRL, conjunctivae normal, anicteric sclerae EOM intact bilaterally ENMT: external ear and nose normal, oropharynx normal Ears: no hearing impairment Neck: trachea midline, no thyromegaly Respiratory: normal respiratory effort; no respiratory distress and does not use accessory muscles Cardiovascular: Rate/Rhythm: regular rate and regular rhythm Gastrointestinal (Abdomen): Soft. Nontender. No guarding or rebound. Skin: no rashes, warm and dry Psychiatric: Orientation: alert, oriented x 3 and cooperative Results & Data ([facility]) Vital Signs (Past 12 Hours) Vital Signs Temp Pulse Resp BP Pulse Ox O2 Del Method 06/12/22 07:07 36.7 C 57 L 16 101/57 L 95 Room Air PG Care Time/CCT Total # of Minutes Spent Total Time Spent with Patient: Total time spent is greater than 50% in coordination of care (as documented) at patient's floor/unit and/or counseling patient: Coding Level of Care Code 54726 SUB INP/OBS CARE 2/35MIN Diagnoses Diverticulitis of large intestine with complication K57.32
--- NOTE | 2022-06-12 11:04 | Discharge Summary ---
Discharge Summary Date of Service June 12, 2022 Admission HPI Per Admitting Provider History obtained from patient and records. Medical history significant for hyperlipidemia, diverticulosis. Patient noted intermittent lower abdominal pain last few weeks. No fever, no chills, no hematochezia. Bowel movements sometimes painful as per patient. May have had short-lived episode spontaneously resolving a few months ago. Work colleague prescribed Augmentin for patient for possible gut infection yesterday. Patient seen at PCPs office today for worsening symptoms. Outpatient CAT scan showed : Short segment mural wall thickening with mild surrounding fat stranding involving the proximal sigmoid colon consistent with acute diverticulitis. A 2.3 x 1.4 cm focal hypoattenuating area of the involved colonic wall, suggesting a developing intramural abscess. No extramural gas. Patient directed to ER for evaluation. IV Zosyn administered at the ER. Medical History as above Surgical History : None Family History : Brain cancer, breast cancer, leukemia, lung cancer, hypertension, hyperlipidemia, Sjogren's syndrome Personal/Social history : Non-smoker, occasional EtOH intake, primary care physician Principal Dx & Hospital Course #1 = Principal Diagnosis (1) Diverticulitis of large intestine with complication: Outpatient CT a/p revealed acute sigmoid diverticulitis with a small developing intramural abscess 2.3 x 1.4cm. UA/UCx negative. Cont abx per surgery recs. Tolerated liquid bfast and lunch without issues. Had normal formed stool this am followed by two episodes of diarrhea. Checking cdiff and added acidophilus. We discussed diet changes that may be helpful with baseline IBS issues. Repeat CT scan in 2 weeks. Cont Zosyn for one more day with possible dc to home in am. (2) Hyperlipidemia: chronic, stable. Cont home atorvastatin. DVT proph: Enoxaparin Full Code Dispo-to home in 1-2 days. Angelita Banks DO [facility] Hospitalist Discharge Exam CONSTITUTIONAL: WNWD, vitals as above, generally well-appearing, NAD EYES: normal conjunctivae, no scleral icterus ENT: external ear and nose normal, MMM NECK: trachea midline RESPIRATORY: clear to auscultation bilaterally, no crackles, rales or wheezes, normal respiratory effort CARDIOVASCULAR: regular rate and rhythm, S1 and 2 heard without murmurs, gallops or rubs, no JVD, no peripheral edema CHEST: inspection of chest was normal GASTROINTESTINAL: normal bowel sounds, soft, nontender, ND, no guarding MUSCULOSKELETAL: strength 5/5 throughout, head is normocephalic and atraumatic SKIN: warm and dry NEUROLOGIC: CN 2-12 grossly intact, no sensory deficit, normal cognition, normal speech, no tremor PSYCHIATRIC: alert cooperative and oriented to person, place and time. Euthymic mood, makes good eye contact, language grossly intact, recent and remote memory grossly intact. Updated Medication List Medication Instructions Recorded Confirmed Type atorvastatin 20 mg tablet 20 mg PO DAILY 06/09/22 06/09/22 History L.acidop,casei,lactis,rham-B.lact,adriana 2 cap PO DAILY #60 caps 06/12/22 Rx 625 mg (10 billion cell) capsule (Advanced Probiotic) amoxicillin 875 mg-potassium 1 tab PO BID #20 tabs 06/12/22 Rx clavulanate 125 mg tablet Hospital Stay Data Consultations 06/09/22 19:23 ED Decision to Admit Stat 06/09/22 21:47 Consult General Surgery Routine Pending Results Patient Have Any Pending Studies at Discharge: No Discharge Instructions Given to Patient (Per Discharging Provider) Please take all medications as instructed on discharge list below. Please follow-up with your primary care provider in 1 week. Please have PCP order CT scan in 2 weeks to ensure complete resolution of abscess. Recommend close follow-up with [facility]. It was a pleasure taking care of you! Please call if you have any questions or problems. You can reach a [facility] hospitalist on duty at [facility] 24 hours a day by calling [phone]. Take care of yourself. Angelita Banks, DO [facility] Hospitalist
== END 2022-06-12 13:26 | disposition home or self-care (01) | DRG 392 ==
LOC: ED 17:49 → 3W 20:22 → SUATTDRO 20:22 → 3W 21:32